=== PATIENT | female | born 1975 | race Caucasian/White ===

== ENCOUNTER → 2023-04-02 06:23 | Day surgery (SDC) | payer BC, SELFPAY | LOC: GI 06:23 | PROVIDERS: ATTENDING PHYSICIAN Internal Medicine | DX: K20.0 Eosinophilic esophagitis (principal); K29.50 Unspecified chronic gastritis without bleeding; K22.89 Other specified disease of esophagus; W44.F3XA Food entering into or through a natural orifice, initial encounter; Y93.9 Activity, unspecified; R13.10 Dysphagia, unspecified; Z87.11 Personal history of peptic ulcer disease | CPT/HCPCS: 43249; 43239; 88342 ==

== ENCOUNTER 2024-06-09 06:19 | Day surgery (SDC) | payer BC, SELFPAY | END 2024-06-09 12:04 | disposition home or self-care (01) | LOC: GI 06:19 | PROVIDERS: ATTENDING PHYSICIAN Internal Medicine | DX: K29.70 Gastritis, unspecified, without bleeding (principal); K20.0 Eosinophilic esophagitis; K29.50 Unspecified chronic gastritis without bleeding; K31.89 Other diseases of stomach and duodenum | CPT/HCPCS: 43239; 88305; 88342 ==